=== PATIENT | female | born 1950 ===

== ENCOUNTER 2017-12-04 10:29 | Day surgery (SDC) | payer MEDICARE ==
[2017-12-04] MEDS ORDERED: Lactated Ringer's 500 ML IV ONE (11:02)
[2017-12-04 11:15] VITALS: O2SAT 100
[2017-12-04] MEDS ORDERED: Propofol 10 mg/ml Inj (20 ML) ONE (11:39)
[2017-12-04 12:33] VITALS: TEMP 97.5
[2017-12-04 12:38] VITALS: BP 102/61; PULSE 56; RESP 19
== END 2017-12-04 13:20 | disposition home or self-care (01) ==
LOC: H.ENDO 10:29
PROVIDERS: ATTEND Internal Medicine Gastroenterology
DX: K31.7 Polyp of stomach and duodenum (principal); R13.10 Dysphagia, unspecified
CPT/HCPCS: 43239; 88305; J2001; J2704; J7120